=== PATIENT | male | born 1965 | race Caucasian/White ===

== ENCOUNTER → 2018-06-10 | Outpatient (CLI) | payer OTHER | LOC: COL.RAD 13:30 | DX: J33.9 Nasal polyp, unspecified (principal); J34.89 Other specified disorders of nose and nasal sinuses ==

== ENCOUNTER → 2018-09-09 | Outpatient (CLI) | payer OTHER ==
[~2018-09-09] MED LIST: COREG 3.123.125 MG/T PO; LASIX 40MG TABL40 MG PO; ZESTRIL 5MG5 MG PO
[2018-09-09 10:34] VITALS: BP 165/104; PULSE 73
[2018-09-09 12:33] VITALS: BP 149/102; PULSE 67
[2018-09-09 12:38] VITALS: BP 149/91; PULSE 93
[2018-09-09 12:40] VITALS: BP 158/93; PULSE 95
[2018-09-09 12:41] VITALS: BP 156/88; PULSE 85
== END ==
LOC: COL.CARD 10:22
DX: I25.10 Atherosclerotic heart disease of native coronary artery without angina pectoris (principal)
CPT/HCPCS: A9500